=== PATIENT | male | born 1965 | race Caucasian/White ===

== ENCOUNTER → 2022-01-12 | Outpatient (CLI) | payer OTHER, SELFPAY ==
--- NOTE | 2022-01-12 08:45 | RAD_ITS ---
STUDY: X-RAY - ABDOMEN/PELVIS REASON FOR EXAM: Male, 56 years old. KUB TECHNIQUE: Single AP view of the abdomen / pelvis. COMPARISON: None. FINDINGS: There is an unremarkable bowel gas pattern. There is a 5.7 mm calculus in the mid right abdomen at the level of the transverse processes of the L5 vertebrae on the right side. There is also evidence of tiny right intrarenal calculi. Is also evidence of tiny left intrarenal calculi. Normal soft tissue structures. Normal visualized osseous structures. RAD/Abdomen Single View IMPRESSION: Small bilateral intrarenal calculi more prominent on the right side. 5.7 mm calculus overlying the transverse processes of the L5 vertebrae on the right side. Electronically Signed: Tony Monae MD at 10:13 EDT ,
== END | disposition home or self-care (01) ==
PROVIDERS: Visit Provider Registered Nurse
DX: N20.0 Calculus of kidney (principal)
CPT/HCPCS: 74018

== ENCOUNTER → 2022-01-17 | Outpatient (CLI) | payer OTHER, SELFPAY ==
--- NOTE | 2022-01-17 08:07 | EKG12_ITS ---
Test Reason : PREOP Blood Pressure : / mmHG Vent. Rate : 074 BPM Atrial Rate : 074 BPM P-R Int : 172 ms QRS Dur : 092 ms QT Int : 392 ms P-R-T Axes : 041 -03 033 degrees QTc Int : 435 ms Normal sinus rhythm Septal infarct , age undetermined Abnormal ECG Confirmed by PIETER MARTINEZ, ANAT ([id number]), senior editor SHITAL CASTANEDA ([id number]) on 01/18/2022 9:45:48 AM Referred By: Henri Rodríguez Confirmed By:ANAT STAPLETON MD
[2022-01-17 09:29] LABS: Hematocrit 46.6 % (40-54); Hemoglobin 15.5 g/dL (13.0-16.5); Mean Corp Hgb Conc 33.3 g/dL (32-36); Mean Corpuscular Hgb 30.5 pg (27.0-32.0); Mean Corpuscular Volume 91.7 fL (80-94); Mean Platelet Vol. 10.2 fl (6.2-12.0); Platelet Count 193 K/mm3 (150-450); RBC Distribution Width CV 12.9 % (11.6-14.6); RBC Distribution Width SD 43.8 fl (35.1-43.9); Red Blood Count 5.08 M/mm3 (4.6-6.2); White Blood Count 5.1 K/mm3 (4.4-11.0)
[2022-01-17 10:14] LABS: Anion Gap 3 (5-15); BUN 13 mg/dL (7-18); BUN/Creat Ratio 11.4 RATIO (10-20); Calcium,Total 8.8 mg/dL (8.5-10.1); Chloride 109 mmol/L (98-107); Creatinine, Serum 1.14 mg/dL (0.70-1.30); EST Glomerular Filtration Rate 71 mL/min (>60); Est Glom Filt Rate - Afr Amer 86 mL/min (>60); Glucose 90 mg/dL (74-106); Potassium 3.8 mmol/L (3.5-5.1); Sodium Level 142 mmol/L (136-145)
== END | disposition home or self-care (01) ==
PROVIDERS: Referring Provider Urology; Visit Provider Urology
DX: Z01.810 Encounter for preprocedural cardiovascular examination (principal); Z01.812 Encounter for preprocedural laboratory examination
CPT/HCPCS: 36415; 80048; 85027; 93005

== ENCOUNTER 2023-04-17 05:53 | Emergency (ER) | payer OTHER, SELFPAY ==
[2023-04-17 05:54] VITALS: BP 221/116; PULSE 68; RESP 16; TEMP 35.6; O2SAT 100; BMI 43.8
--- NOTE | 2023-04-17 06:12 | CT_ITS ---
STUDY: CT ABDOMEN AND PELVIS WITHOUT CONTRAST REASON FOR EXAM: Male, 57 years old patient with kidney stone. RADIATION DOSAGE (If Supplied By Facility): CTDIvol = ( 23.8 ) mGy, DLP = ( 1326 ) mGycm TECHNIQUE: Transaxial images were obtained from the dome of the diaphragm to the symphysis pubis without oral contrast, and without intravenous contrast. Sagittal and coronal images were reconstructed. Individualized dose optimization techniques were used for this CT. COMPARISON: Prior comparable comparison studies are not available for review at this time. FINDINGS: The visualized lung bases are unremarkable. The visualized portions of the heart are within normal limits. There is decreased attenuation of the liver consistent with steatosis. There are multiple gallstones. Normal spleen. Normal pancreas. Normal bilateral adrenal glands. There are bilateral nonobstructing renal calculi with the largest measuring approximately 12.8 mm. There is a right-sided renal cyst measuring approximately 2 cm in greatest dimension. There is no obvious hydronephrosis, hydroureter or radiopaque ureteral calculus. Normal visualized stomach. There is no obvious dilated bowel, ascites or pneumoperitoneum. Small bowel has a grossly normal appearance. There is still an orogastric abnormal colon with diverticula most numerous in the sigmoid colon. The appendix is visualized and appears normal. There is multifocal atherosclerotic calcification of the abdominal aorta, without a demonstrated aneurysm. Normal inferior vena cava. Normal retroperitoneum. Normal urinary bladder. Normal visualized prostate gland. There is a right-sided inguinal hernia containing adipose tissue. Normal osseous structures. CT/Abdomen/Pelvis without Cont IMPRESSION: 1. Bilateral nonobstructing renal calculi. 2. Hepatic steatosis. 3. Cholelithiasis without evidence of cholecystitis. 4. Diverticulosis without obvious diverticulitis. Electronically Signed: Ebonie Wtakins MD at 6:56 EST ,
--- NOTE | 2023-04-17 06:12 | EDS_ITS ---
HPI History of Present Illness Chief Complaint: Back Informant: patient Narrative Narrative: 57-year-old male presenting to the emergency department with chief complaint of back pain. Patient states on Sunday he was moving some furniture. Afterwards he began to have pain in the right lower thoracic paraspinal musculature. He states that if he is laying flat feels better. If he goes to bend over or twist it makes it hurt worse. States it hurts to sit in a chair for any period of time. He states that this morning he could barely get his pants on and the pain made him very nauseous. He has had kidney stones in the past but states this does not feel like that. He states he has had back pain in the past but it this does not feel like that. He denies any urinary symptoms or fever. He denies any abdominal pain. There does not appear to be a radicular component to it [facility] Medical History Kidney stone Home Medications cyclobenzaprine 10 mg tablet 10 mg PO TID PRN Muscle Spasm #15 TABLETS 04/17/23 [Rx Last Taken Unknown] naproxen 500 mg tablet 500 mg PO BID #14 tabs 04/17/23 [Rx Last Taken Unknown] Allergy/AdvReac Type Severity Reaction Status Date / Time No Known Allergies Allergy Verified 04/17/23 05:53 Surgical History H/O lithotripsy Social History Smoking Status: Former smoker ROS ROS ED Constitutional Constitutional ED: Denies chills, fever(s) or weight loss Eyes Eyes: Denies change in vision or diplopia ENT ENT ED: Denies ear pain, rhinorrhea or sore throat Cardiovascular Cardiovascular: Denies chest pain, orthopnea, palpitations or racing heartbeat Respiratory/Chest Respiratory/Chest: Denies cough, dyspnea or orthopnea Gastrointestinal Gastrointestinal: Reports nausea; Denies abdominal pain, diarrhea or vomiting Genitourinary Genitourinary ED: Denies dysuria, hematuria or urinary frequency Musculoskeletal Musculoskeletal: Reports back pain; Denies arthralgias, myalgias or neck pain Integumentary Denies abscess or rash Neurologic Neurologic: Denies headache(s), paresthesias or weakness Psychiatric Psychiatric: Denies anxiety, depression, suicidal ideation or suicidal thoughts Endocrine Endocrinology: Denies polydipsia, polyphagia or polyuria Allergic/Immunologic Allergic/Immunologic ED: Denies mouth swelling, tongue swelling or urticaria EXAM Physical Exam Const Vital Signs: 04/17/23 05:54 Temperature 96.1 F L Temperature Source Temporal Pulse Rate 68 Respiratory Rate 16 Blood Pressure 221/116 H Blood Pressure Mean 151 Pulse Ox 100 Positive well nourished, well developed and obese General Appearance ED: well developed Nutritional Appearance: obese HEENT Reports normocephalic, head/scalp atraumatic and moist mucous membranes Eyes PERRL and EOMs intact bilaterally Neck no lymphadenopathy, supple and no JVD Resp normal respiratory effort and clear to auscultation bilaterally Cardio regular rate, regular rhythm and no murmurs GI normal to inspection, nondistended, normoactive bowel sounds and non-tender Palpation: soft Back/Spine no CVA tenderness Back/Spine Narrative: Pain with movement twisting bending. After palpating the thoracic right par aspinal musculature the patient states it begins to hurt Extremity normal to inspection General Extremety ED: Negative for edema General Extremity: Negative for edema Neuro oriented x3 and CN's II-XII intact bilaterally Sensorium / Orientation: alert Motor Exam: strength 5/5 throughout Psych mental status grossly normal Mood & Affect: Negative for depressed or tearful Skin no rashes or lesions noted and no wounds MDM MDM MDM Narrative Medical decision making narrative: Noncontrasted CT shows bilateral nonobstructing renal calculi as well as cholelithiasis. There is no evidence of AAA or retroperitoneal hematoma. No acute inflammatory process noted. I do not think this represents biliary colic as its not made worse with food he is not having abdominal pain nausea vomiting. It is reproducible with movement. The patient has no overt urinary tract infection. Clinically I think this is musculoskeletal in nature. He received a dose of Toradol. I do recommend anti-inflammatories and muscle relaxant. Also recommend heat. Follow-up with primary care return if worsening Lab Data Labs: Laboratory Results - last 24 hr 04/17/23 07:06 Urine Color Yellow Urine Clarity Clear Urine pH 6.0 Ur Specific [place] 1.020 Urine Protein 30 H Urine Glucose (UA) Normal Urine Ketones 15 H Urine Occult Blood 10 H Urine Nitrite Negative Urine Bilirubin Negative Urine Urobilinogen 1 H Ur Leukocyte Esterase 100 H Urine RBC 0 SEEN Urine WBC 5-10 SEEN Ur Squamous Epith Cells 5-10 SEEN Calcium Oxalate Crystal 1+ Urine Bacteria 0 SEEN Hyaline Casts 0-5 SEEN WBC Casts 0-5 SEEN Urine Mucus 0 SEEN Radiography Diagnostic Testing: Clinical Impression(s) from Imaging Studies Abdomen/Pelvis CT 04/17/23 06:12 IMPRESSION: 1. Bilateral nonobstructing renal calculi. 2. Hepatic steatosis. 3. Cholelithiasis without evidence of cholecystitis. 4. Diverticulosis without obvious diverticulitis. Electronically Signed: Ebonie Watkins MD at 6:56 EST Reading Location ID and State: [facility] / [place] , Service support , Discharge Plan Triage Chief Complaint: Back ED Provider: Ricky Plummer Dx/Rx/DC Orders Clinical Impression: Acute back pain, Acute thoracic myofascial strain Instructions: ED Back Sprain/Strain Prescriptions: New cyclobenzaprine [cyclobenzaprine] 10 mg tablet 10 mg PO TID PRN (Reason: Muscle Spasm) Qty: 15 0RF naproxen 500 mg tablet 500 mg PO BID Qty: 14 0RF Primary Care Provider: Care Physician,No Primary Referrals: Tanner Hook MD [Med Staff - Active Staff] - 1 Week if not improving NOT,DEFINED [Non-Staff] - Disposition Disposition: Home, Self Care
[2023-04-17 07:11] LABS: Bacteria 0 SEEN /hpf (None Seen); Mucous, Urine 0 SEEN /hpf (<or=2+); Red Blood Cells-Urine 0 SEEN /hpf (0-5)
[2023-04-17 07:20] LABS: Color, Urine Yellow (Yellow); Glucose, Dipstick Normal (Normal); Ketone-Dipstick 15 mg/dl (Negative); Leukocyte Esterase-Dipstick 100 /ul (Negative); Nitrite-Dipstick Negative (Negative); Occult Blood-Urine 10 /ul (Negative); Protein-Dipstick 30 mg/dl (Negative); Urine Bilirubin Dipstick Negative (Negative); Urine Clarity Clear (Clear); Urine Urobilinogen 1 mg/dl (Normal)
[2023-04-17 07:44] LABS: Squamous Epithelial Cells - UA 5-10 SEEN /hpf (0-5); White Blood Cells 5-10 SEEN /hpf (0-5)
[2023-04-17 07:46] LABS: Hyaline Cast 0-5 SEEN /lpf (0-5); White Cell Cast 0-5 SEEN /lpf (None Seen)
[2023-04-17 07:48] LABS: Calcium Oxalate Crystals Ur 1+ /hpf (<or=2+)
[2023-04-17] MEDS: Ketorolac 60 MG/2 ML Vial IM (08:07)
[2023-04-17 08:31] VITALS: PULSE 77; RESP 18; O2SAT 94
[2023-04-17 08:39] VITALS: RESP 18
[2023-04-17 09:06] VITALS: BP 172/97
--- NOTE | 2023-04-17 09:07 | ED.RN ---
PT AND PT SPOUSE EDUCATED TO TAKE BP DAILY AND FOLLOW UP WITH PCP ABOUT BP. BOTH VERBALIZE UNDERSTANDING.
== END 2023-04-17 09:08 | disposition home or self-care (01) ==
PROVIDERS: Emergency Provider Emergency Medicine; Visit Provider Emergency Medicine
DX: M54.9 Dorsalgia, unspecified (principal); S29.019A Strain of muscle and tendon of unspecified wall of thorax, initial encounter; Z87.891 Personal history of nicotine dependence; X50.0XXA Overexertion from strenuous movement or load, initial encounter; Y93.89 Activity, other specified
CPT/HCPCS: 74176; 81001; 96372; 99282; A4216